=== PATIENT | female | born 1955 | race Caucasian/White ===

== ENCOUNTER 2018-07-15 15:36 | Emergency (ER) | payer MEDICARE, OTHER, SELFPAY ==
[2018-07-15 15:37] VITALS: BP 158/90; PULSE 96; RESP 20; TEMP 36; O2SAT 95; BMI 44.9
--- NOTE | 2018-07-15 15:45 | ED_ITS ---
HPI - General Adult <MARLO Elena - Last Filed: 07/15/18 22:27> General Chief complaint: Skin/Abscess/Foreign Body Stated complaint: REDNESS OF SKIN Time Seen by Provider: 07/15/18 15:37 Source: patient Mode of arrival: ambulatory Limitations: no limitations History of Present Illness HPI narrative: 63-year-old female with history of asthma that is a nonsmoker here for complaint of a redness to her bilateral hands over the past month and a half to 2 months. She was seen for this at [facility] Emergency room and was treated for dermatitis with oral steroids and topical steroids along with oral antihistamines. She states that the steroids did not help her symptoms in the topical steroids actually made her symptoms worse. She has been using moisturizing cream which has been helping her symptoms. She has not been seen for this by her primary care provider. She denies any triggers she denies any exposures to chemicals to her hands. She denies any changes in her hygiene products. She reports that the rash is itchy. No other concerns or complaints at this timeframe. Related Data Previous Rx's Medication Instructions Recorded cetirizine 10 mg PO DAILY PRN #14 tab 07/15/18 Allergies Allergy/AdvReac Type Severity Reaction Status Date / Time meperidine [From Demerol] Allergy Verified 07/15/18 15:51 Review of Systems <MARLO Elena - Last Filed: 07/15/18 22:27> Constitutional Denies chills, Denies fever(s), Denies lethargy and Denies weakness Eyes Denies change in vision, Denies eye discharge, Denies irritation and Denies loss of vision ENT Ears, Nose, Mouth, and Throat: Denies change in voice, Denies neck pain and Denies sore throat Cardiovascular Denies chest pain, Denies irregular heart rhythm, Denies lightheadedness, Denies palpitations, Denies dyspnea, Denies dyspnea on exertion and Denies orthopnea Respiratory Denies cough, Denies dyspnea, Denies dyspnea on exertion and Denies wheezing Gastrointestinal Gastrointestinal: Denies abdominal pain, Denies change in bowel habits, Denies diarrhea, Denies nausea and Denies vomiting Genitourinary Denies hematuria, Denies flank pain, Denies urinary incontinence and Denies urinary urgency Musculoskeletal Denies neck pain Integumentary/Breasts Comments: Rash to bilateral hands Neurologic Denies confusion, Denies loss of vision and Denies weakness Psychiatric Denies anxiety, Denies confusion, Denies depression, Denies homicidal ideation and Denies suicidal ideation Endocrine Denies palpitations Hematologic/Lymphatic Denies easy bruising Allergic/Immunologic Denies wheezing Exam <MARLO Elena - Last Filed: 07/15/18 22:27> Initial Vital Signs Initial Vital Signs: Vital Signs Temperature 96.8 F L 07/15/18 15:37 Pulse Rate 96 H 07/15/18 15:37 Respiratory Rate 20 07/15/18 15:37 Blood Pressure 158/90 H 07/15/18 15:37 Pulse Oximetry 95 07/15/18 15:37 Const General: cooperative and well developed Nutritional Appearance: well nourished Orientation: alert, awake, oriented x3 and not confused HENMT Mouth: oral mucosae normal and mucous membranes abnormal Eyes General: appearance normal, both eyes and all related structures Eyelids: eyelids normal Conjunctivae: conjunctivae normal Sclera: sclerae normal Pupils: PERRL EOM: EOM intact bilaterally Resp Effort & Inspection: normal respiratory effort, able to speak in complete sentences, no respiratory distress and no use of accessory muscles Auscultation: clear to auscultation bilaterally, no rales, no rhonchi and no wheezes Cardio Rate: regular rate Rhythm: regular rhythm Heart Sounds: no click, no gallops, no murmurs and no rubs Pulses: normal peripheral pulses Skin Other: Rash to bilateral hands on the dorsal aspect. Erythematous coloring with dry skin/scaling. Skin is thickened at the rash area. No open lesions are seen. No vesicles. Distal CMS is intact. Neuro General: alert, oriented x3, gait normal and no focal motor deficits Speech: speech normal Extrem General: full ROM, no clubbing, cyanosis or edema, no pedal edema and no calf tenderness <Isai Ellis DO - Last Filed: 07/16/18 07:03> Initial Vital Signs Initial Vital Signs: Vital Signs Temperature 96.8 F L 07/15/18 15:37 Pulse Rate 96 H 07/15/18 15:37 Respiratory Rate 20 07/15/18 15:37 Blood Pressure 158/90 H 07/15/18 15:37 Pulse Oximetry 95 07/15/18 15:37 Course <MARLO Elena - Last Filed: 07/15/18 22:27> Vital Signs - 8 hr 07/15/18 15:37 07/15/18 16:49 Temperature 96.8 F L Pulse Rate 96 H 81 Respiratory Rate 20 16 Blood Pressure 158/90 H Blood Pressure [Left Arm] 121/56 L Pulse Oximetry 95 95 <Isai Ellis DO - Last Filed: 07/16/18 07:03> Vital Signs - 8 hr 07/15/18 15:37 07/15/18 16:49 Temperature 96.8 F L Pulse Rate 96 H 81 Respiratory Rate 20 16 Blood Pressure 158/90 H Blood Pressure [Left Arm] 121/56 L Pulse Oximetry 95 95 Medical Decision Making <MARLO Elena - Last Filed: 07/15/18 22:27> MDM Narrative Medical decision making narrative: Dermatitis to bilateral hands with differential between dry skin dermatitis/allergic/ sensitivity. Patient states that she did not feel that the steroid cream has done any good and she feels that the steroid cream actually made symptoms worse. She is encouraged to continue using Aquaphor to hydrate the skin. She is instructed to look for any triggers in her environment. Cetirizine is prescribed to help with antihistamine. She is instructed to follow up with primary care provider in the next few days for re-evaluation and referral to dermatology for further evaluation. For any worsening symptoms return emergency room. Discharge Plan Departure Patient Disposition: Home Clinical Impression: Dermatitis Discharge Date/Time: 07/15/18 16:53 Interventions: ED Discharge Assessment Last Done: 07/15/18 16:52 Instructions: Contact Dermatitis Activity Restrictions/Additional Instructions: continue using the Aquaphor moisturizing cream as rash appears to have dry skin properties. does not appear to be infectious at this point. Cetirizine is provided for antihistamine properties. Differential between dry skin dermatitis/ contact dermatitis. follow up with primary care provider in the next few days for re-evaluation for dermatology referral. Look for sources in environment that could be a trigger for sensitivity. For any worsening symptoms return to the emergency room. Prescriptions: New cetirizine 10 mg tablet 10 mg PO DAILY PRN (Reason: allergy symptoms) Qty: 14 RF: 0 Referrals: Madhu Bruce DO [Non-Staff] - <Isai Ellis DO - Last Filed: 07/16/18 07:03> Cosign ED Attending Noah Attestation: I was available for consultation during this patient's emergency department encounter
[2018-07-15 16:49] VITALS: BP 121/56; PULSE 81; RESP 16; O2SAT 95
== END 2018-07-15 16:53 | disposition home or self-care (01) ==
PROVIDERS: Emergency Provider Nurse Practitioner Family
DX: L30.9 Dermatitis, unspecified (principal)
CPT/HCPCS: 99282

== ENCOUNTER 2019-05-25 11:58 | Emergency (ER) | payer MEDICARE, OTHER, SELFPAY ==
[2019-05-25 12:02] VITALS: BP 148/83; PULSE 84; RESP 20; TEMP 35.9; O2SAT 96
--- NOTE | 2019-05-25 12:05 | DI.RAD.S_ITS ---
PROCEDURE: XR FOOT RT MIN 3V INDICATIONS: swelling TECHNIQUE: 3 views of the foot were acquired. COMPARISON: None. FINDINGS: Bones: No fractures or dislocations. No suspicious bony lesions. Scattered degenerative changes are present. Calcaneal osteophyte is present. Soft tissues: No tibiotalar joint effusion. Achilles tendon appears normal. IMPRESSION: No visualized acute fracture or dislocation. However, if clinical concern and/or pain persist, short interval imaging followup in 7-10 days is recommended, as occult injury cannot be definitively excluded. Dictated by: Josy Huston M.D. on 05/25/2019 at 12:16 Approved by: Josy Huston M.D. on 05/25/2019 at 12:17
--- NOTE | 2019-05-25 13:32 | ED_ITS ---
HPI - Extremity Injury (Lower) <Lissette Del Real PA-C - Last Filed: 05/25/19 20:35> General Chief Complaint: Extremity Injury, Lower Stated Complaint: right top of foot is bruised and swelling Time Seen by Provider: 05/25/19 12:10 Source: patient Mode of arrival: Ambulatory Limitations: no limitations History of Present Illness HPI Narrative: This 63-year-old female noticed right foot ecchymoses 2 days ago, noticed her foot was stiff and then painful when she stepped out of the car. She states that she has not had any type of new trauma that might have affected the foot. She states that she did do her usual activities and was walking around all day with persistent pain. She noted some swelling yesterday on the outside of the foot, and had pain again all day. She has been taking Aleve for the pain which helped. She was on her foot yesterday and noted increased swelling last night which was still present this morning so thought she should get this checked out. She does have a history of remote fracture to that foot as a child. She has noted some pain in her santos area as as well, no calf pain or dyspnea, no knee pain or any other new complaints on systems review. Related Data Previous Rx's Medication Instructions Recorded cetirizine 10 mg PO DAILY PRN #14 tab 07/15/18 Allergies Allergy/AdvReac Type Severity Reaction Status Date / Time meperidine [From Demerol] Allergy Verified 07/15/18 15:51 Review of Systems <Lissette Del Real PA-C - Last Filed: 05/25/19 20:35> Review of Systems ROS Unobtainable: All systems reviewed & are unremarkable except as noted in HPI and below Patient History <Lissette Del Real PA-C - Last Filed: 05/25/19 20:35> Medical History (Updated 05/25/19 @ 14:10 by Lissette Del Real PA-C) Asthma (Chronic) Edema of lower extremity (Chronic) GERD (gastroesophageal reflux disease) (Chronic) Osteoporosis (Chronic) Surgical History (Updated 05/25/19 @ 13:56 by Lissette Del Real PA-C) Status post cholecystectomy (Resolved) Status post hysterectomy (Resolved) Social History Smoking Status: Never smoker Smoking Status: Never smoker Substance Use Type: does not use Exam <Lissette Del Real PA-C - Last Filed: 05/25/19 20:35> Narrative Exam Narrative: GENERAL APPEARANCE: Patient sitting comfortably, in no distress. LUNGS: Clear to auscultation bilaterally. HEART: Rate and rhythm regular without murmur, normal S1 and S2, no S3 or S4. EXTREMITIES: Trace edema, no calf tenderness MUSCULOSKELETAL: Right foot/ankle no clear effusion. Tender at the lateral tibial borders bilaterally. No point tenderness over the ankle, full range of motion. Right comb tender to touch throughout more mid to lateral metatarsals. No point tenderness over the toes. Tender with ROM toes. DERMATOLOGIC: Ecchymoses covering most of the right metatarsals on the anterior surface NEUROVASCULAR: Right foot is warm and pink with brisk cap refill, sensation grossly intact Initial Vital Signs Initial Vital Signs: Vital Signs Temperature 96.7 F L 05/25/19 12:02 Pulse Rate 84 05/25/19 12:02 Respiratory Rate 20 05/25/19 12:02 Blood Pressure 148/83 H 05/25/19 12:02 Pulse Oximetry 96 05/25/19 12:02 <Jenifer Pineda MD - Last Filed: 06/03/19 07:17> Initial Vital Signs Initial Vital Signs: Vital Signs Temperature 96.7 F L 05/25/19 12:02 Pulse Rate 84 05/25/19 12:02 Respiratory Rate 20 05/25/19 12:02 Blood Pressure 148/83 H 05/25/19 12:02 Pulse Oximetry 96 05/25/19 12:02 Course <Lissette Del Real PA-C - Last Filed: 05/25/19 20:35> Course Additional Information: No acute fracture was found today however patient has significant ecchymoses and pain. Discussed concern for occult fracture given her osteoporosis. Walking boot placed and she could ambulate comfortably with this, advised avoiding weight-bearing, follow-up with PCP in about a week so teresita t further testing or repeat x-ray can be done if needed. She is agreeable Orders Ordered: ED Orders 05/25/19 12:05 XR foot RT min 3V Stat Vital Signs Vital signs: Vital Signs - 8 hr 05/25/19 14:39 Pulse Rate 80 Respiratory Rate 18 Blood Pressure 151/74 H Pulse Oximetry 98 <Jenifer Pineda MD - Last Filed: 06/03/19 07:17> Orders Ordered: ED Orders 05/25/19 12:05 XR foot RT min 3V Stat Vital Signs Vital signs: Vital Signs - 8 hr 05/25/19 14:39 Pulse Rate 80 Respiratory Rate 18 Blood Pressure 151/74 H Pulse Oximetry 98 MDM - Extremity Injury (Lower) <Lissette Del Real PA-C - Last Filed: 05/25/19 20:35> Imaging Data foot: Radiologist's impression: [address] [address] XRay Report Signed Patient: LES JUNG HMR#: [id number] : 4Acct:[id number] Age/Sex: 63 / FDate of Service: 05/25/19 Loc: ED Accession Number: [id number] Procedure: XR foot RT min 3V Ordering Provider: Jenifer Pineda MD PROCEDURE: XR FOOT RT MIN 3V INDICATIONS: swelling TECHNIQUE: 3 views of the foot were acquired. COMPARISON: None. FINDINGS: Bones: No fractures or dislocations. No suspicious bony lesions. Scattered degenerative changes are present. Calcaneal osteophyte is present. Soft tissues: No tibiotalar joint effusion. Achilles tendon appears normal. IMPRESSION: No visualized acute fracture or dislocation. However, if clinical concern and/or pain persist, short interval imaging followup in 7-10 days is recommended, as occult injury cannot be definitively excluded. Dictated by: Josy Huston M.D. on 05/25/2019 at 12:16 Approved by: Josy Huston M.D. on 05/25/2019 at 12:17 Discharge Plan Departure Patient Disposition: Home Clinical Impression: Pain in metatarsus of right foot Discharge Date/Time: 05/25/19 14:20 Instructions: DI for Foot Fracture Activity Restrictions/Additional Instructions: The radiologist did not see any broken bone on your x-ray today, however I have given you instructions for fracture as I think we should immobilize you in a walking boot and recheck this next week. Given your history of osteoporosis, please make sure you schedule a follow-up with your PCP in a week or so as we talked about, so that the x-rays or further imaging can be done if needed. Please use the walking boot at all times when you are bearing weight in the interim. You can continue your Aleve to help with pain and add Tylenol as needed Prescriptions: No Action cetirizine 10 mg tablet 10 mg PO DAILY PRN (Reason: allergy symptoms) Qty: 14 RF: 0 Referrals: Madhu Bruce, [Non-Staff] -
[2019-05-25 14:39] VITALS: BP 151/74; PULSE 80; RESP 18; O2SAT 98
== END 2019-05-25 14:20 | disposition home or self-care (01) ==
PROVIDERS: Emergency Provider Internal Medicine
DX: M79.671 Pain in right foot (principal)
CPT/HCPCS: 73630; 99283

== ENCOUNTER 2021-12-19 20:59 | Emergency (ER) | payer MEDICARE, OTHER, SELFPAY ==
[2021-12-19] VITALS (11 sets, daily range): BP systolic 164–191; BP diastolic 78–108; PULSE 72–95; RESP 18; TEMP 36.9; O2SAT 95–98; BMI 48.2
[2021-12-19] MEDS: FLUORESCEIN 1 MG STRIP EYE-LEFT (23:14)
[2021-12-19] MEDS: PROPARACAINE 0.5% OPHTH SOL 1 DROPS EYE-LEFT (23:16)
--- NOTE | 2021-12-19 23:27 | DI.CT.S_ITS ---
PROCEDURE: CT ORBIT BI W CON INDICATIONS: trauma L eye, pain and discharge TECHNIQUE: After the administration of intravenous contrast, 2.5 mm axial images acquired through the orbits, with coronal and sagittal reformats. For radiation dose reduction, the following was used: automated exposure control, adjustment of mA and/or kV according to patient size. COMPARISON: None. FINDINGS: Image quality: Excellent. Orbits: There is mild left periorbital soft tissue swelling and enhancement. No discrete loculated periorbital abscess collection. The globes appear intact. There is mild enlargement of the left lacrimal duct with an associated small focus of gas medially in the left orbit. The optic nerves are normal in size and enhancement. No retrobulbar masses, fluid collections, or fat stranding. The extra-ocular muscles are normal and symmetrical in appearance. Optic chiasm is normal. Intracranial: The pituitary gland is normal, without sellar or suprasellar masses. Visualized cerebral hemispheres, brainstem, and spinal cord appear normal. Bones and sinuses: Visualized calvarium and facial bones demonstrate no definite fractures.. Visualized sinuses and mastoids are clear. IMPRESSION: 1. Left periorbital soft tissue swelling without evidence of retrobulbar abscess in the left orbit. Globes appear intact. 2. Small focus of gas medially in the left orbit adjacent to the left lacrimal duct. The finding is nonspecific and may reflect sequelae of infection along the canaliculus versus a minimal fracture of the lamina papyracea. Dictated by: Vick Albrecht M.D. on 12/20/2021 at 1:03 Approved by: Vick Albrecht M.D. on 12/20/2021 at 1:16
--- NOTE | 2021-12-19 23:28 | ED.GENADULT ---
HPI - General Adult General Chief complaint: Eye Problems Stated complaint: lt eye irritation Time Seen by Provider: 12/19/21 21:13 Source: patient Mode of arrival: Ambulatory History of Present Illness HPI narrative: 66-year-old woman with history of seasonal allergies was out working in her yard yesterday and this morning woke up with left eye irritation that is gotten progressively worse over the course of the day. On testing in the emergency department she has lost significant vision in the left eye is 2/200 even with her glasses had not noticed this as her right eye/remains 20/20. She describes no fevers cough or chills. She does describe significant periorbital pain a sense of irritation to the eye and discharge from the eye with increasing swelling to the upper lids and just inferior to the eye over the maxilla. There has been no drainage from her nose and no impaired extraocular movement. She describes no other injuries, cough, chills, sore throat, lower extremity edema. Related Data Previous Rx's Medication Instructions Recorded cetirizine 10 mg tablet 10 mg PO DAILY PRN allergy 07/15/18 symptoms #14 tabs amoxicillin 875 mg-potassium 1 tab PO BID #20 tabs 12/20/21 clavulanate 125 mg tablet Allergies Allergy/AdvReac Type Severity Reaction Status Date / Time meperidine [From Demerol] Allergy Verified 07/15/18 15:51 Review of Systems Review of Systems Narrative: Remainder of complete review of systems is otherwise unremarkable except for that included in the HPI. Patient History Medical History Asthma Edema of lower extremity GERD (gastroesophageal reflux disease) Osteoporosis Surgical History Status post cholecystectomy Status post hysterectomy Social History Smoking Status: Never smoker Smoking Status: Never smoker Substance Use Type: does not use Exam Initial Vital Signs Initial Vital Signs: Vital Signs Pulse Rate 90 12/19/21 21:07 Blood Pressure 164/82 H 12/19/21 21:07 Pulse Oximetry 95 12/19/21 21:07 General: Healthy appearing, in mild distress. Able to give a complete and coherent history. Well-nourished well-developed HEENT: Moist mucous membranes, left eye with minor amount of purulence discharge. Tenderness and swelling to the left upper lid without stye or hordoleum appreciated. Mild scleral injection. Acuity right eye 20/20, acute left eye 2/200. No diplopia. Peter-Pen intra-ocular pressure 13 in the left eye. Fluorescein staining does not show any obvious abnormalities to the cornea. Non dilated retinal exam shows normal red reflex and blood vessels appreciated. Cup to disc ratio is not able to be estimated due to nondilated exam. She is exquisitely tender to palpation all along the orbital rim with minor edema inferiorly collecting over the superior maxilla. Pupils are equal and reactive, no affect are and pupillary defect appreciated. Neck: No cervical adenopathy, supple Respiratory: Lungs are clear to auscultation, no wheezing no rales no rhonchi. Full and symmetrical air movement Cardiac: Regular rate and rhythm no murmurs no bruits Abdomen: Soft, nontender, good bowel tones, no flank pain Skin: Warm and dry, no rashes Neurologic: Grossly neurologically intact with no obvious asymmetries or abnormalities Extremities: No trauma, well perfused, 1+ bilateral lower extremity edema Psych: Cooperative, appropriate insight and affect Course Orders Ordered: ED Orders 12/19/21 23:27 CT orbit BI w con Stat 12/19/21 23:34 Complete Blood Count AUTO DIFF Stat Comprehensive Metabolic Panel Stat Discontinued Medications Fluorescein Sodium (Fluorescein 1 Mg Strip) 1 mg EYE-LEFT NOW ONE Stop: 12/19/21 23:11 Last Admin: 12/19/21 23:14 Dose: 1 mg Documented By: STEVE Naproxen (Naproxen 250 Mg Tablet) 500 mg PO NOW ONE Stop: 12/20/21 00:19 Last Admin: 12/20/21 01:23 Dose: 500 mg Proparacaine HCl (Proparacaine 0.5% Ophth Steph) 1 drops EYE-LEFT NOW ONE Stop: 12/19/21 23:11 Last Admin: 12/19/21 23:16 Dose: 1 drop Documented By: STEVE Vital Signs Vital signs: Vital Signs - 8 hr 12/19/21 21:09 12/19/21 21:07 12/19/21 21:07 Temperature 98.4 F Pulse Rate 95 H 90 Respiratory Rate 18 Blood Pressure 164/82 H 164/82 H Pulse Oximetry 95 95 Oxygen Delivery Method Room Air 12/19/21 21:30 12/19/21 21:30 12/19/21 22:00 Temperature Pulse Rate 76 77 Respiratory Rate Blood Pressure 190/105 H Pulse Oximetry 96 95 Oxygen Delivery Method 12/19/21 22:01 12/19/21 22:01 12/19/21 22:30 Temperature Pulse Rate 76 75 Respiratory Rate Blood Pressure 191/108 H Pulse Oximetry 98 97 Oxygen Delivery Method 12/19/21 22:31 12/19/21 23:00 12/19/21 23:01 Temperature Pulse Rate 73 76 72 Respiratory Rate Blood Pressure Pulse Oximetry 98 96 97 Oxygen Delivery Method 12/19/21 23:04 12/19/21 23:30 12/20/21 00:00 Temperature Pulse Rate Respiratory Rate Blood Pressure 173/78 H 168/78 H 158/72 H Pulse Oximetry Oxygen Delivery Method Medical Decision Making Lab Data Result diagrams: 12/19/21 23:34 12/19/21 23:34 Labs: Lab Results 12/19/21 12/19/21 Range/Units 23:34 23:34 WBC 7.3 (4.5-11.0) X10^3/uL RBC 4.00 (4.0-5.2) X10^6/uL Hgb 12.9 (12.0-16.0) g/dL Hct 37.6 (36-46) % MCV 94.1 (80-100) fL MCH 32.2 (26-34) PG MCHC 34.2 (30-36) % RDW 13.8 (11.6-14.8) % Plt Count 224 (150-400) X10^3/uL Neut % (Auto) 68.1 (50-75) % Lymph % (Auto) 19.1 L (25-40) % [place] % (Auto) 9.2 (3-14) % Eos % (Auto) 3.0 (2-4) % Baso % (Auto) 0.6 (0-2) % Neut # (Auto) 4900 (3335-6777) /uL Lymph # (Auto) 1400 (4447-2983) /uL [place] # (Auto) 700 (0-900) /uL Eos # (Auto) 200 (0-450) /uL Baso # (Auto) 0 (0-100) /uL Sodium 140 (137-145) mmol/L Potassium 4.1 (3.4-5.1) mmol/L Chloride 105 (98-107) mmol/L Carbon Dioxide 29 (22-32) mmol/L BUN 28 H (7-17) mg/dL Creatinine 0.84 (0.52-1.04) mg/dL Estimated GFR > 60 (>60) mL/min BUN/Creatinine Ratio 33.3 H (6-22) Glucose 101 (80-110) mg/dL Calcium 8.8 (8.4-10.2) mg/dL Total Bilirubin 0.4 (0.2-1.3) mg/dL AST 27 (14-36) IU/L ALT 24 (<35) IU/L Alkaline Phosphatase 88 (38-126) U/L Total Protein 7.3 (6.3-8.2) g/dL Albumin 4.2 (3.5-5.0) g/dL Globulin 3.1 (1.7-4.1) g/dL Albumin/Globulin Ratio 1.4 (1.0-2.8) Imaging Data CT orbit: Radiologist's Impression: FINDINGS:? Image quality:? Excellent.? ? Orbits:? There is mild left periorbital soft tissue swelling and enhancement.? No discrete loculated periorbital abscess collection.? The globes appear intact.? There is mild enlargement of the left lacrimal duct with an associated small focus of gas medially in the left orbit.? The optic nerves are normal in size and enhancement.? No retrobulbar masses, fluid collections, or fat stranding.? The extra-ocular muscles are normal and symmetrical in appearance.? Optic chiasm is normal.? ? Intracranial:? The pituitary gland is normal, without sellar or suprasellar masses.? Visualized cerebral hemispheres, brainstem, and spinal cord appear normal.? ? Bones and sinuses:? Visualized calvarium and facial bones demonstrate no definite fractures..? Visualized sinuses and mastoids are clear.? ? IMPRESSION:? ? 1. Left periorbital soft tissue swelling without evidence of retrobulbar abscess in the left orbit.? Globes appear intact. ? 2. Small focus of gas medially in the left orbit adjacent to the left lacrimal duct.? The finding is nonspecific and may reflect sequelae of infection along the canaliculus versus a minimal fracture of the lamina papyracea. ? Dictated by: Vick Albrecht M.D. on 12/20/2021 at 1:03 ? ? MDM Narrative Medical decision making narrative: 66-year-old woman who is concerned that she may have gotten something in her eye while she was working in her yd yesterday. She woke up this morning with increasing irritation and tenderness. Was somewhat surprised to find that she had significant loss of visual acuity wants formally tested in the emergency department. She has developed mild drainage from the eye and exquisitely tender along the entire orbital rim. She does not have pain with extraocular eye movement and does not have any impingement with any extraocular eye movement. No obvious scleral or corneal laceration, abrasion or trauma. Minimally injected sclera only. At this point, with her head irritation the minor discharge, the significant tenderness around the entire globe and orbit with intra-ocular pressures at 13 I am not particularly concerned with acute closure glaucoma. Possibility of globe rupture or periorbital cellulitis is entertained. There is not significant fluorescein uptake over the cornea suggesting that bacterial conjunctivitis is less likely. Will obtain CT scan of the orbits. CT scan does not suggest obvious globe rupture or orbital cellulitis. Most consistent with preseptal cellulitis. Recent up-to-date recommendations are for monotherapy amoxicillin clavulanic acid in the absence of skin trauma in the periorbital region. Will begin Augmentin and she will be safe for home discharge Discharge Plan Departure Patient Disposition: Home Clinical Impression: Preseptal cellulitis of left eye Instructions: DI for Cellulitis -- Adult Activity Restrictions/Additional Instructions: Thank you for coming in today It looks like you have an infection of the skin around your eye called a pre septal cellulitis. You do not have cellulitis back behind the eyeball which is a much more concerning finding. With the decreased vision in that eye I was much more concerned with the possibility of a small cut to the eye with fluid leaking out or severe glaucoma. Neither of these things seem to be the case. Because you did not actually detect any change to your vision until we specifically tested each eye alone, I am wondering the left-sided poor vision has been there for a longer period of time. I am going to have a complete 10 days of Augmentin. On Wednesday, if you notice that the vision in your left eye continues to be as poor or worse as it is today, need to be seen by an casino accountant. Please call [facility] surgeons at [phone] and let them know you have significant and acute loss of vision in her left eye. If you have worsening symptoms or new findings please return to the ER. Prescriptions: New amoxicillin-pot clavulanate 875-125 mg tablet 1 tab PO BID Qty: 20 0RF No Action cetirizine 10 mg tablet 10 mg PO DAILY PRN (Reason: allergy symptoms) Qty: 14 0RF Referrals: Madhu Bruce DO [Primary Care Provider] -
[2021-12-19 23:45] LABS: Add Manual Diff / Slide Review NO; Basophils Absolute Auto 0 /uL (0-100); Basophils Percent Auto 0.6 % (0-2); Eosinophils Absolute Auto 200 /uL (0-450); Hematocrit 37.6 % (36-46); Hemoglobin 12.9 g/dL (12.0-16.0); Lymphocytes Absolute Auto 1400 /uL (1100-4500); Lymphocytes Percent Auto 19.1 % (25-40); Mean Corpuscular HGB Conc 34.2 % (30-36); Mean Corpuscular Hemoglobin 32.2 PG (26-34); Mean Corpuscular Volume 94.1 fL (80-100); Monocytes Absolute Auto 700 /uL (0-900); Monocytes Percent Auto 9.2 % (3-14); Neutrophils Absolute Auto 4900 /uL (1500-7000); Neutrophils Percent Auto 68.1 % (50-75); Platelet Count 224 X10^3/uL (150-400); Red Cell Distribution Width 13.8 % (11.6-14.8); White Blood Cell Count 7.3 X10^3/uL (4.5-11.0)
[2021-12-19 23:54] LABS: Alanine Aminotransferase 24 IU/L (<35); Albumin 4.2 g/dL (3.5-5.0); Albumin Globulin Ratio 1.4 (1.0-2.8); Alkaline Phosphatase 88 U/L (38-126); Aspartate Aminotransferase 27 IU/L (14-36); BUN Creatinine Ratio 33.3 (6-22); Bilirubin Total 0.4 mg/dL (0.2-1.3); Blood Urea Nitrogen 28 mg/dL (7-17); Calcium 8.8 mg/dL (8.4-10.2); Carbon Dioxide 29 mmol/L (22-32); Chloride 105 mmol/L (98-107); Estimated Glomerular Filt Rate > 60 mL/min (>60); Globulin 3.1 g/dL (1.7-4.1); Glucose 101 mg/dL (80-110); HEMOLYSIS < 15 (0-50); Potassium 4.1 mmol/L (3.4-5.1); Sodium 140 mmol/L (137-145); Total Protein 7.3 g/dL (6.3-8.2)
[2021-12-20] VITALS: BP 158/72
[2021-12-20] MEDS: NAPROXEN 250 MG TABLET 500 MG PO (01:23)
[2021-12-20 01:35] VITALS: BP 147/71; PULSE 79; TEMP 36.9; O2SAT 94
[2021-12-20] MEDS: AMOXICILLIN/CLAV 875/125 MG 1 TAB PO (01:51)
== END 2021-12-20 01:58 | disposition home or self-care (01) ==
PROVIDERS: Emergency Provider Emergency Medicine; PCP Family Medicine
DX: L03.213 Periorbital cellulitis (principal)
CPT/HCPCS: 36415; 70481; 80053; 85025; 99284; Q9967

== ENCOUNTER 2022-05-22 17:55 | Emergency (ER) | payer MEDICARE, OTHER, SELFPAY ==
[2022-05-22 18:23] VITALS: BP 169/95; PULSE 88; RESP 20; TEMP 36.8; O2SAT 97; BMI 47.9
--- NOTE | 2022-05-22 22:23 | ED_ITS ---
HPI - Extremity Injury (Lower) General Chief Complaint: Extremity Injury, Lower Stated Complaint: hurt left foot, swelling Time Seen by Provider: 05/22/22 21:29 Source: patient Mode of arrival: Ambulatory History of Present Illness HPI Narrative: Patient is a healthy 66-year-old lady who presents with foot and ankle pain. It has been ongoing since this summer when she heard a gardening. However she thinks she test stepped and twisted wrong yesterday. Hurts to walk. Specially in her calcaneus and foot and ankle. She is able to hobble along with a cane. No other injury. Related Data Previous Rx's Medication Instructions Recorded cetirizine 10 mg tablet 10 mg PO DAILY PRN allergy 07/15/18 symptoms #14 tabs amoxicillin 875 mg-potassium 1 tab PO BID #20 tabs 12/20/21 clavulanate 125 mg tablet Allergies Allergy/AdvReac Type Severity Reaction Status Date / Time meperidine [From Demerol] Allergy Verified 07/15/18 15:51 Review of Systems Review of Systems Narrative: GENERAL: Denies chills,fever HEENT: Denies throat pain RESPIRATORY: Denies dyspnea, cough, wheezing CARDIOVASCULAR: Denies chest pain, palpitations GASTROINTESTINAL: Denies nausea, vomiting MUSCULOSKELETAL: See HPI SKIN: No rash, no laceration, no pruritus NEUROLOGIC: Denies weakness, dizziness, headache, numbness 8 point review of systems is negative except for those stated above and HPI Patient History Medical History Asthma Edema of lower extremity GERD (gastroesophageal reflux disease) Osteoporosis Surgical History Status post cholecystectomy Status post hysterectomy Social History Smoking Status: Never smoker Smoking Status: Never smoker Substance Use Type: does not use Exam Initial Vital Signs Initial Vital Signs: Vital Signs Temperature 98.3 F 05/22/22 18:23 Pulse Rate 88 05/22/22 18:23 Respiratory Rate 20 05/22/22 18:23 Blood Pressure 169/95 H 05/22/22 18:23 Pulse Oximetry 97 05/22/22 18:23 Oxygen Delivery Method 05/22/22 18:23 GENERAL: Alert pleasant 66-year-old female CARDIOVASCULAR: peripheral pulses in tact, cap refill <2 sec RESPIRATORY: No respiratory distress, speaks in full sentences without difficulty EXTREMITIES: Normal range of motion, no clubbing or edema. Neurovascularly intact Left lower extremity pain in ankle and foot no gross bony deformity distal pedal pulse intact Achilles tendon intact ankle is stable able to flex and extend. NEUROLOGICAL: Cranial nerves II through XII grossly intact. Normal gait and speech. SKIN: Warm, dry, no petechiae, no rashes or lesions. Course Orders Ordered: ED Orders 05/22/22 22:28 XR ankle LT min 3V Stat XR foot LT min 3V Stat Vital Signs Vital signs: Vital Signs - 8 hr 05/22/22 23:32 Pulse Rate 87 Respiratory Rate 20 Blood Pressure 151/93 H Pulse Oximetry 98 Oxygen Delivery Method Room Air MDM - Extremity Injury (Lower) Imaging Data Extremity x-ray #1: My Impression: foot- negative Radiologist's Impression: [place] [address] XRay Report Signed Patient: Christine Avitia MR#: [id number] : 1955 Acct:[id number] Age/Sex: 66 / F Date of Service: 05/22/22 Loc: ED Accession Number: [id number] ?? Procedure: XR foot LT min 3V Ordering Provider: Roxanne Graham D.O. PROCEDURE:? XR FOOT LT MIN 3V ? INDICATIONS:? pain swelling ? TECHNIQUE:? 3 views of the foot were acquired.? ? COMPARISON:? [facility], , XR FOOT RT MIN 3V, 05/25/2019, 12:16. ? FINDINGS:? ? Bones:? No fractures or dislocations.? Visualized osseous structures appear osteopenic.? No suspicious bony lesions.? ? Soft tissues:? No tibiotalar joint effusion.? Achilles tendon appears normal.? ? IMPRESSION:? ? 1. No fracture or dislocation. ? ? Dictated by: Vick Albrecht M.D. on 05/22/2022 at 23:43 ? ? Extremity x-ray #2: My Impression: ankle- negative Radiologist's Impression: [address] [place] [id number] XRay Report Signed Patient: Christine Avitia MR#: [id number] : 1955 Acct:[id number] Age/Sex: 66 / F Date of Service: 05/22/22 Loc: ED Accession Number: [id number] ?? Procedure: XR ankle LT min 3V Ordering Provider: Roxanne Graham D.O. PROCEDURE:? XR ANKLE LT MIN 3V ? INDICATIONS:? pain swelling ? TECHNIQUE:? 3 views of the ankle were acquired.? ? COMPARISON:? [facility], CR, XR FOOT LT MIN 3V, 05/22/2022, 22:38. ? FINDINGS:? ? Bones:? No fractures or dislocations.? Ankle mortise is normally aligned.? No suspicious bony lesions.? ? Soft tissues:? No tibiotalar joint effusion.? Achilles tendon appears normal.? ? IMPRESSION:? ? 1. No fracture or dislocation. ? ? Dictated by: Vick Albrecht M.D. on 05/22/2022 at 23:44 ?? MDM Narrative Medical decision making narrative: Patient has had ongoing left foot and ankle pain. No is fracture dislocation found on x-ray. Supportive care only may require outpatient MRI. She is given orthopedic shoe for comfort Discharge Plan Departure Patient Disposition: Home Clinical Impression: Foot sprain Instructions: DI for Foot Sprain Activity Restrictions/Additional Instructions: *You have been diagnosed with right foot sprain *What to do: At this time x-rays are negative. Wear supportive shoe as needed. May require outpatient MRI few continue to have pain. Elevate and ice *Continue to take medications as directed Tylenol 650 mg every 4-6 hours if needed from mother pain Ibuprofen 600 mg every hours if needed for [id number] pain *Follow up with your primary care provider in 2-3 days or call [phone] *Return to ER if you should have increasing pain or any new, worsening or concerning symptoms Prescriptions: No Action cetirizine 10 mg tablet 10 mg PO DAILY PRN (Reason: allergy symptoms) Qty: 14 0RF amoxicillin-pot clavulanate 875-125 mg tablet 1 tab PO BID Qty: 20 0RF Referrals: Madhu Bruce DO [Primary Care Provider] - Visit Report Forms: Patient Portal/API
--- NOTE | 2022-05-22 22:28 | DI.RAD.S_ITS ---
PROCEDURE: XR ANKLE LT MIN 3V INDICATIONS: pain swelling TECHNIQUE: 3 views of the ankle were acquired. COMPARISON: [facility], CR, XR FOOT LT MIN 3V, 05/22/2022, 22:38. FINDINGS: Bones: No fractures or dislocations. Ankle mortise is normally aligned. No suspicious bony lesions. Soft tissues: No tibiotalar joint effusion. Achilles tendon appears normal. IMPRESSION: 1. No fracture or dislocation. Dictated by: Vick Albrecht M.D. on 05/22/2022 at 23:44 Approved by: Vick Albrecht M.D. on 05/22/2022 at 23:44
--- NOTE | 2022-05-22 22:28 | DI.RAD.S_ITS ---
PROCEDURE: XR FOOT LT MIN 3V INDICATIONS: pain swelling TECHNIQUE: 3 views of the foot were acquired. COMPARISON: [facility], CR, XR FOOT RT MIN 3V, 05/25/2019, 12:16. FINDINGS: Bones: No fractures or dislocations. Visualized osseous structures appear osteopenic. No suspicious bony lesions. Soft tissues: No tibiotalar joint effusion. Achilles tendon appears normal. IMPRESSION: 1. No fracture or dislocation. Dictated by: Vick Albrecht M.D. on 05/22/2022 at 23:43 Approved by: Vick Albrecht M.D. on 05/22/2022 at 23:44
[2022-05-22 23:32] VITALS: BP 151/93; PULSE 87; RESP 20; O2SAT 98
== END 2022-05-22 23:33 | disposition home or self-care (01) ==
PROVIDERS: Emergency Provider Emergency Medicine; PCP Family Medicine
DX: S93.602A Unspecified sprain of left foot, initial encounter (principal); X50.1XXA Overexertion from prolonged static or awkward postures, initial encounter
CPT/HCPCS: 73610; 73630; 99281; 99283